=== PATIENT | male | born 1995 | race Caucasian/White ===

== ENCOUNTER 2023-04-18 18:40 | Emergency (ER) | payer OTHER ==
[~2023-04-18] VITALS: Ht 172.7 cm; Wt 90.7 kg
[~2023-04-18 18:40] MED LIST: CLARITIN10 MG PO; MEDROL DOSEPAK4 MG PO
== END 2023-04-18 19:17 | disposition left against medical advice (07) ==
LOC: ED 18:40
DX: J02.9 Acute pharyngitis, unspecified (principal); R19.7 Diarrhea, unspecified; R51.9 Headache, unspecified; R09.89 Other specified symptoms and signs involving the circulatory and respiratory systems; Z53.21 Procedure and treatment not carried out due to patient leaving prior to being seen by health care provider

== ENCOUNTER 2024-05-25 11:34 | Emergency (ER) | payer SELFPAY ==
[~2024-05-25] VITALS: Ht 172.7 cm; Wt 77.1 kg
[~2024-05-25 11:34] MED LIST changes: +PENICILLIN VK500 MG PO
[2024-05-25 13:31] LABS: BILIRUBIN Negative (Negative); BLOOD Negative (Negative); CLARITY Clear (Clear); COLOR Yellow (Yellow); GLUCOSE Negative (Negative); KETONE Negative (Negative); LEUKO ESTERASE Negative (Negative); NITRITE Negative (Negative); SPECIFIC GRAVITY <= 1.005 (1.001-1.030); UROBILINOGEN 0.2 E.U./dl (0.0-1.0)
[2024-05-25 13:49] LABS: WBC 0-2 wbc/hpf (0-5)
[2024-05-25] MEDS ORDERED: Doxycycline Hyclate 100 MG CAP PO ONE (15:50)
[2024-05-25] MEDS ORDERED: VIBRAMYCIN100 MG PO (15:53)
== END 2024-05-25 16:20 | disposition home or self-care (01) ==
LOC: ED 11:34
PROVIDERS: Emergency Medicine
DX: N45.1 Epididymitis (principal); Z88.8 Allergy status to other drugs, medicaments and biological substances

== ENCOUNTER → 2024-06-05 | Outpatient (CLI) | payer OTHER ==
[~2024-06-05] MED LIST changes: +VIBRAMYCIN100 MG PO
== END | disposition home or self-care (01) ==
LOC: US 12:57
PROVIDERS: ATTEND Nurse Practitioner Family
DX: N50.3 Cyst of epididymis (principal); N45.1 Epididymitis

== ENCOUNTER 2024-10-03 20:19 | Emergency (ER) | payer OTHER ==
[~2024-10-03] VITALS: Ht 172.7 cm; Wt 70.3 kg
[2024-10-03] MEDS ORDERED: AMOX-CLAV 875-1 EACH PO (20:40)
[2024-10-03] MEDS ORDERED: Amoxicillin/Clavulanate Pota 875 MG TAB PO ONE (20:40)
== END 2024-10-03 20:55 | disposition home or self-care (01) ==
LOC: ED 20:19
DX: I89.0 Lymphedema, not elsewhere classified (principal); Z79.899 Other long term (current) drug therapy; Z88.1 Allergy status to other antibiotic agents